=== PATIENT | female | born 1935 | race Caucasian/White ===

== ENCOUNTER 2016-06-12 10:57 | Emergency (ER) | payer MEDICARE ==
[~2016-06-12 10:57] MED LIST: DARV PO; FOSA5TAB PO; LEVO25TA36 PO; QUIN5 PO
[2016-06-12 11:12] VITALS: BP 137/85; PULSE 75; RESP 20; TEMP 98; O2SAT 97
[2016-06-12] MEDS ORDERED: MAGN400T2 PO (11:17)
[2016-06-12] MEDS ORDERED: VITATAB43 PO (11:17)
[2016-06-12] MEDS ORDERED: AMLO2.5T PO (11:17)
[2016-06-12] MEDS ORDERED: CENTTAB PO (11:17)
[2016-06-12] MEDS ORDERED: ALEN1TAB48 PO (11:17)
[2016-06-12] MEDS ORDERED: QUIN20TA4 PO (11:17)
[2016-06-12] MEDS ORDERED: CALCTAB33 PO (11:17)
[2016-06-12] MEDS ORDERED: LEVO50TA53 PO (11:17)
--- NOTE | 2016-06-12 11:18 | PD ---
HPI Chief Complaint: Edema Time Seen by Provider: 11:11 Travel History International Travel<30 days: No Contact w/Intl Traveler<30days: No Traveled to known affect area: No History of Present Illness HPI Patient is a pleasant 81-year-old female who presents the emergency department with complaint of right leg pain and swelling. Patient states that 3 days ago she noticed swelling around the lateral aspect of the right ankle. She did not notice any trauma, strips or falls. Patient states that her socks feel as though they're fitting tight. The pain has radiated slightly into the calf. Patient believes that there is some swelling in the calf as well. She denies any DVT, PE risk factors, history of blood clots or bleeding disorders, recent travel, etc. She has not noticed any redness. Pain is mild, throbbing, slightly more so with movement. PFSH Past Medical History Hypertension: Yes Thyroid Disease: Yes Past Surgical History Gynecologic Surgery: Yes Other Surgery: Yes (HERNIA REPAIR) Social History Alcohol Use: No Tobacco Use: No Substance Use: No Allergies-Medications (Allergen,Severity, Reaction): Coded Allergies: No Known Allergies (Verified , 06/12/16) Reported Meds & Prescriptions Reported Meds & Active Scripts Active Reported Vitamin Q09-Fkvyy Acid (Cobalamine Combinations) 500-400 Mcg Tab 1 Tab PO DAILY Magnesium Oxide 400 Mg Tab 400 Mg PO DAILY Calcium 600+D Plus Minerals (Calcium Carbonate-Vitamin D W/Minerals) 600-400 Mg- Unit Tab 1 Tab PO DAILY Centrum Silver (Multiple Vitamins W/ Minerals) 1 Tab 1 Tab PO DAILY Alendronate (Alendronate Sodium) 70 Mg Tab 70 Mg PO Q7D Amlodipine (Amlodipine Besylate) 2.5 Mg Tab 2.5 Mg PO HS Levoxyl (Levothyroxine Sodium) 50 Mcg Tab 50 Mcg PO DAILY Quinapril (Quinapril HCl) 20 Mg Tab 20 Mg PO DAILY Review of Systems Except as stated in HPI: all other systems reviewed are Neg Physical Exam Narrative GENERAL: Pleasant elderly female in no acute distress SKIN: Focused skin assessment warm/dry. HEAD: Normocephalic. EYES: No scleral icterus. No injection or drainage. ENT: Mucous membranes pink and moist. NECK: supple CARDIOVASCULAR: Regular rate and rhythm. RESPIRATORY: No accessory muscle use. MUSCULOSKELETAL: Right lower extremity with swelling around the lateral malleolus of the ankle without focal tenderness to palpation. Other than this I do not really appreciate much edema of the patient does have some slight pain with palpation of the calf. No palpable cords. Bounding distal pulses and strength intact. NEUROLOGICAL: Awake and alert. Normal speech. PSYCHIATRIC: Appropriate mood and affect; insight and judgment normal. Data Data Last Documented VS Vital Signs Date Time Temp Pulse Resp B/P Pulse Ox O2 Delivery O2 Flow Rate FiO2 06/12/16 11:12 98.0 75 20 137/85 97 Orders Us Leg Venous Doppler (06/12/16 ) Ankle, Complete ([id number]) (06/12/16 ) [facility] Medical Decision Making Medical Screen Exam Complete: Yes Emergency Medical Condition: Yes Medical Record Reviewed: Yes Differential Diagnosis 81-year-old female here with complaint of right leg pain, swelling. Differential includes ankle sprain, fracture, DVT. No evidence of cellulitis on exam and patient has bounding peripheral pulses excluding peripheral vascular disease. Narrative Course X-ray of the right ankle and duplex ultrasound of the right lower extremity showed degenerative changes but no acute abnormalities and no evidence of DVT. Symptoms a for increasing most consistent with right lateral ankle sprain but she does not have any history of trauma to suggest this. Regardless she is able to ambulate independently and does not warrant further treatment. Patient reassured and discharged home. Diagnosis Primary Impression: Right ankle pain Qualified Code: M25.571 - Acute right ankle pain Referrals: Primary Care Physician as needed Patient Instructions: Arthralgia (ED), General Instructions Additional Instructions: X-rays of the ankle and ultrasound of the right leg were normal without evidence of fracture, DVT. Ice the affected area 20 minutes at a time 3-4 times daily. Tylenol, ibuprofen as needed for pain. Elevate to help with swelling. Med/Other Pt SpecificInfo: No Change to Meds Disposition: 01 DISCHARGE HOME Condition: Stable Jess Hammonds MD Jun 12, 2016 11:18
--- NOTE | 2016-06-12 11:46 | RADHPO ---
EXAM DATE/TIME: 06/12/2016 11:21 [facility] COMPARISON: No previous studies available for comparison. INDICATIONS : Right ankle pain and swelling, no known injury. MEDICAL HISTORY : None. SURGICAL HISTORY : None. ENCOUNTER: Initial ACUITY: 4 - 6 days PAIN SCORE: 3/10 LOCATION: Right ankle FINDINGS: There is marked soft tissue swelling of the left malleolus. Medial malleolus is intact. Degenerative changes are seen at the tibiotalar joint with sclerosis in the talus. CONCLUSION: 1. Degenerative changes. 2. Talar sclerosis. Fracture is not appreciated. Chan Carter MD FACR on June 12, 2016 at 11:38 Board Certified Radiologist. This report was verified electronically.
--- NOTE | 2016-06-12 12:02 | RADHPO ---
EXAM DATE/TIME: 06/12/2016 11:42 [facility] COMPARISON: No previous studies available for comparison. INDICATIONS : Right leg pain. MEDICAL HISTORY : Hypothyroidism. Hypertension. SURGICAL HISTORY : Hernia repair. ENCOUNTER: Initial ACUITY: 2 day PAIN SCORE: 3/10 LOCATION: Right leg. TECHNIQUE: Venous ultrasound of the leg was performed from the inguinal ligament to the proximal calf. Real-time, color Doppler and spectral tracing, compression and augmentation techniques were us ed. FINDINGS: There is normal compressibility of the deep venous system from the inguinal region to the proximal ca lf. No echogenic clot is seen in the lumen of the common femoral, femoral, popliteal, and posterior tibial veins. There is a normal response of the venous system to proximal and distal augmentation an d respiration. CONCLUSION: There is normal compressibility of the deep venous system from the inguinal region to the proximal calf. No echogenic clot is seen in the lumen of the common femoral, femoral, popliteal , and posterior tibial veins. There is a normal response of the venous system to proximal and distal augmentation and respiration. CONCLUSION: Negative for deep venous thrombosis. Chan Carter MD FACR on June 12, 2016 at 12:00 Board Certified Radiologist. This report was verified electronically.
== END 2016-06-12 12:24 | disposition home or self-care (01) ==
LOC: PHED 10:57
DX: M25.571 Pain in right ankle and joints of right foot (principal); I10 Essential (primary) hypertension; M79.604 Pain in right leg
CPT/HCPCS: 73610; 93971